=== PATIENT | female | born 1980 | race African-American/Black ===

== ENCOUNTER 2016-10-22 12:22 | Emergency (ER) | payer OTHER ==
[~2016-10-22] VITALS: Ht 170.2 cm; Wt 60.0 kg
[2016-10-22 13:21] VITALS: BP 118/82
--- NOTE | 2016-10-22 17:20 | NUR ---
36/F BIB SELF C/O TEST. PT STATES HAS HAD NAUSEA X 4 DAYS. PT STATES HAS NAUSEA NOTED AT THIS TIME ; DENIES VOMITING OR DIARRHEA AT THIS TIME. SKIN IS PINK/WARM/DRY; AAOX4 WITH EVEN AND STEADY GAIT; LUNGS CLEAR BL; HR EVEN AND REGULAR; PT DENIES ANY FEVER, CP, SOB, OR COUGH AT THIS TIME; PATIENT STATES PAIN OF 0/10 AT THIS TIME; VSS; PATIENT POSITIONED FOR COMFORT; HOB ELEVATED; BEDRAILS UP X2; BED DOWN. ER MD MADE AWARE OF PT STATUS.
[2016-10-22] MEDS ORDERED: ONDANSETRON 4 MG/2 ML VIAL IVP ONE (17:40)
[2016-10-22] MEDS ORDERED: NACL 0.9% 1,000 ML IV ONE (17:40)
--- NOTE | 2016-10-22 18:00 | NUR ---
PT TAKEN TO US VIA W/C ACCOMPANIED BY BARKEEP
[2016-10-22 18:24] LABS: BASOPHILS # (AUTO) 0.2 K/uL (0.00-0.22); BASOPHILS % (AUTO) 1.9 % (0.0-2.0); EOSINOPHILS # (AUTO) 0.1 K/uL (0-0.4); EOSINOPHILS % (AUTO) 0.7 % (0.0-4.0); HEMATOCRIT 37.5 % (36-48); HEMOGLOBIN 12.1 g/dL (12.0-16.0); LYMPHOCYTES # (AUTO) 2.4 K/uL (2.5-16.5); LYMPHOCYTES % (AUTO) 24.6 % (20.5-51.1); MEAN CORPUSCULAR HEMOGLOBIN 28 pg (27-31); MEAN CORPUSCULAR HGB CONC 32 g/dL (33-37); MEAN CORPUSCULAR VOLUME 88 fL (80-94); MONOCYTES # (AUTO) 0.6 K/uL (0.8-1.0); MONOCYTES % (AUTO) 6.6 % (1.7-9.3); NEUTROPHILS # (AUTO) 6.3 K/uL (1.8-7.7); NEUTROPHILS % (AUTO) 66.2 % (42.2-75.2); PLATELET COUNT (AUTO) 270 K/uL (140-450); RED BLOOD CELL COUNT(AUTO) 4.27 MIL/uL (4.20-5.40); RED CELL DISTRIBUTION WIDTH 13.5 % (11.6-13.7); WHITE BLOOD COUNT (AUTO) 9.6 K/uL (4.8-10.8)
[2016-10-22 18:35] LABS: ANION GAP 11.2 (8-16); CARBON DIOXIDE 27.6 mmol/L (21-32); CREATININE 0.6 mg/dL (0.6-1.3); POTASSIUM 3.8 mmol/L (3.5-5.1)
[2016-10-22 19:05] LABS: BILIRUBIN,URINE NEGATIVE (NEGATIVE); BLOOD, URINE NEGATIVE (NEGATIVE); COLOR,URINE YELLOW (YELLOW); LEUKOCYTE ESTERASE ,URINE 1+ (NEGATIVE); NITRITE, URINE NEGATIVE (NEGATIVE); PROTEIN,URINE NEGATIVE (NEGATIVE); UGLUCOSE NEGATIVE (NEGATIVE); UROBILINOGEN,URINE 0.2 EU/dL (0.2 - 1)
[2016-10-22 19:08] LABS: APPEARANCE,URINE CLOUDY (CLEAR)
--- NOTE | 2016-10-22 19:11 | NUR ---
Pt report given to MIRZA SAEED. Transfer of care at this time.
[2016-10-22 19:22] LABS: BACTERIA,URINE FEW /HPF (None Seen); RBC,URINE 0-5 (RARE) /HPF (0-5); SQUAMOUS EPITHELIAL CELL,UR FEW /LPF (0-3 (FEW)); WBC,URINE NONE SEEN /HPF (0-5)
[2016-10-22 19:23] LABS: CALCIUM OXALATE CRYSTALS,UR 0-10 /HPF (None Seen)
[2016-10-22 19:52] VITALS: BP 115/80
--- NOTE | 2016-10-22 19:54 | NUR ---
Patient discharged with v/s stable. Written and verbal after care instructions given and explained. Patient alert, oriented and verbalized understanding of instructions. Ambulatory with steady gait. All questions addressed prior to discharge. ID band removed. Patient advised to follow up with PMD. Rx of NITROFURANTOIN AND ZOFRAN given. Patient educated on indication of medication including possible reaction and side effects. Opportunity to ask questions provided and answered.
[2016-10-23] MEDS ORDERED: NITROFURANTOIN 100 MG CAP PO SCH (08:00)
[2016-10-24 06:16] LABS: CHLAMYDIA TRACHOMATIS AMP DNA Negative (Negative)
== END 2016-10-22 19:54 | disposition home or self-care (01) ==
LOC: MED 12:22
DX: O21.0 Mild hyperemesis gravidarum (principal); O23.41 Unspecified infection of urinary tract in pregnancy, first trimester; O26.891 Other specified pregnancy related conditions, first trimester; D64.9 Anemia, unspecified; Z3A.01 Less than 8 weeks gestation of pregnancy
CPT/HCPCS: 36415; 76817; 80048; 81001; 81025; 84702; 85025; 86900; 86901; 87086; 87205; 87210; 87491; 96361; 96374; 99285; J2405; J7030; Q0092

== ENCOUNTER 2016-10-27 23:49 | Emergency (ER) | payer OTHER ==
[~2016-10-27] VITALS: Ht 165.1 cm; Wt 49.9 kg
[2016-10-27 23:57] VITALS: BP 117/83
[2016-10-28] MEDS ORDERED: NACL 0.9% 1,000 ML IV ONE (00:10)
[2016-10-28] MEDS ORDERED: ONDANSETRON 4 MG/2 ML VIAL IVP ONE (00:10)
== END 2016-10-27 23:57 | disposition left against medical advice (07) ==
LOC: MED 23:49
DX: O26.891 Other specified pregnancy related conditions, first trimester (principal); R11.0 Nausea; Z3A.08 8 weeks gestation of pregnancy; Z53.21 Procedure and treatment not carried out due to patient leaving prior to being seen by health care provider

== ENCOUNTER 2016-11-26 15:01 | Emergency (ER) | payer OTHER ==
[~2016-11-26] VITALS: Ht 170.2 cm; Wt 66.7 kg
[2016-11-26 15:05] VITALS: BP 114/73
[2016-11-26] MEDS ORDERED: ONDANSETRON 4 MG ODT PO ONE (18:30)
[2016-11-26] MEDS ORDERED: NACL 0.9% 1,000 ML IV ONE (18:30)
--- NOTE | 2016-11-26 22:28 | NUR ---
Susan diaz in [facility] - 11/27/16 at 0223 by TATUM PATIENT LEFT WITHOUT BEING SEEN BY DR. DOLAN. NO FURTHER CARE PROVIDED FOR PATIENT.
--- NOTE | 2016-11-26 22:28 | NUR ---
PATIENT LEFT WITHOUT BEING SEEN BY DR. TEIXEIRA. NO FURTHER CARE PROVIDED FOR PATIENT.
== END 2016-11-26 22:12 | disposition left against medical advice (07) ==
LOC: MED 15:01
DX: O21.8 Other vomiting complicating pregnancy (principal); Z3A.12 12 weeks gestation of pregnancy; Z53.21 Procedure and treatment not carried out due to patient leaving prior to being seen by health care provider

== ENCOUNTER 2016-11-30 08:09 | Emergency (ER) | payer OTHER ==
[~2016-11-30] VITALS: Ht 175.3 cm; Wt 65.3 kg
[2016-11-30 08:11] VITALS: BP 116/83
--- NOTE | 2016-11-30 08:18 | NUR ---
PT AMBULATED TO BED 7
--- NOTE | 2016-11-30 08:19 | NUR ---
DR. DELAROSA AT BEDSIDE.
--- NOTE | 2016-11-30 08:19 | NUR ---
36/F BIB SELF C/O SEVERE NAUSEA AND VOMITING X 1 DAY-- >6 EPISODES OF 3 EMESIS SINCE LAST NIGHT. A1 12 WKS IUP. HX PANCREATITIS. DENIES RX. STS PANCREATITIS EXACERBATION WHEN .
[2016-11-30] MEDS ORDERED: NACL 0.9% 1,000 ML IV ONE (08:25)
[2016-11-30] MEDS ORDERED: ONDANSETRON 4 MG/2 ML VIAL IVP ONE (08:25)
--- NOTE | 2016-11-30 08:50 | NUR ---
LAB AT BEDSIDE
[2016-11-30 09:03] LABS: BASOPHILS # (AUTO) 0.1 K/uL (0.00-0.22); BASOPHILS % (AUTO) 0.9 % (0.0-2.0); EOSINOPHILS # (AUTO) 0.1 K/uL (0-0.4); EOSINOPHILS % (AUTO) 0.9 % (0.0-4.0); HEMATOCRIT 35.7 % (36-48); HEMOGLOBIN 11.5 g/dL (12.0-16.0); LYMPHOCYTES # (AUTO) 1.5 K/uL (2.5-16.5); LYMPHOCYTES % (AUTO) 17.2 % (20.5-51.1); MEAN CORPUSCULAR HEMOGLOBIN 28 pg (27-31); MEAN CORPUSCULAR HGB CONC 32 g/dL (33-37); MEAN CORPUSCULAR VOLUME 88 fL (80-94); MONOCYTES # (AUTO) 0.5 K/uL (0.8-1.0); NEUTROPHILS # (AUTO) 6.3 K/uL (1.8-7.7); PLATELET COUNT (AUTO) 237 K/uL (140-450); RED BLOOD CELL COUNT(AUTO) 4.05 MIL/uL (4.20-5.40); RED CELL DISTRIBUTION WIDTH 14.5 % (11.6-13.7); WHITE BLOOD COUNT (AUTO) 8.5 K/uL (4.8-10.8)
[2016-11-30 09:15] LABS: ANION GAP 10.7 (8-16); CALCIUM 8.1 mg/dL (8.5-10.1); CREATININE 0.5 mg/dL (0.6-1.3); POTASSIUM 3.7 mmol/L (3.5-5.1)
--- NOTE | 2016-11-30 09:16 | NUR ---
Patient appears to be resting comfortably in bed. Vital Signs within normal limits. Respirations even and unlabored. NO N/V NOTED AT THIS TIME.WILL CONTINUE TO MONITOR
[2016-11-30 09:19] LABS: ALBUMIN 2.7 g/dL (3.4-5.0); TOTAL BILIRUBIN 0.3 mg/dL (0.0-1.0); TOTAL PROTEIN, SERUM 6.2 g/dL (6.4-8.2)
[2016-11-30] MEDS ORDERED: METOCLOPRAMIDE 10 MG/2 ML INJ VIAL IVP ONE (09:45)
[2016-11-30 10:05] LABS: BILIRUBIN,URINE NEGATIVE (NEGATIVE); BLOOD, URINE NEGATIVE (NEGATIVE); COLOR,URINE YELLOW (YELLOW); LEUKOCYTE ESTERASE ,URINE 2+ (NEGATIVE); NITRITE, URINE NEGATIVE (NEGATIVE); PROTEIN,URINE NEGATIVE (NEGATIVE); UGLUCOSE NEGATIVE (NEGATIVE); UROBILINOGEN,URINE 0.2 EU/dL (0.2 - 1)
[2016-11-30 10:08] VITALS: BP 113/78
--- NOTE | 2016-11-30 10:08 | NUR ---
Patient discharged with v/s stable. Written and verbal after care instructions given and explained. Patient alert, oriented and verbalized understanding of instructions. Ambulatory with steady gait. All questions addressed prior to discharge. ID band removed. Patient advised to follow up with PMD. Rx of MACROBID& ZOFRAN ODT given. Patient educated on indication of medication including possible reaction and side effects. Opportunity to ask questions provided and answered.
[2016-11-30 10:10] LABS: APPEARANCE,URINE HAZY (CLEAR)
[2016-11-30 10:14] LABS: RBC,URINE 0-5 (RARE) /HPF (0-5)
[2016-11-30 10:15] LABS: BACTERIA,URINE 1+ /HPF (None Seen); MUCUS,URINE 1+ /LPF (None Seen); SQUAMOUS EPITHELIAL CELL,UR 4-10 (MOD) /LPF (0-3 (FEW))
== END 2016-11-30 10:08 | disposition home or self-care (01) ==
LOC: MED 08:09
DX: O23.41 Unspecified infection of urinary tract in pregnancy, first trimester (principal); O21.0 Mild hyperemesis gravidarum; Z3A.01 Less than 8 weeks gestation of pregnancy
CPT/HCPCS: 36415; 76801; 80053; 81001; 81025; 83690; 84702; 85025; 87086; 96361; 96374; 96375; 99285; J2405; J2765; J7030

== ENCOUNTER 2016-12-30 12:43 | Emergency (ER) | payer OTHER ==
[~2016-12-30] VITALS: Ht 170.2 cm; Wt 68.0 kg
[2016-12-30 12:47] VITALS: BP 116/83
--- NOTE | 2016-12-30 13:06 | NUR ---
SWETHA WAYNE RN [facility]---FHT [id number]
--- NOTE | 2016-12-30 13:37 | NUR ---
Patient to bed 08.
--- NOTE | 2016-12-30 13:40 | NUR ---
PATIENT PRESENTS TO ED WITH NAUSEA AND VOMITING ALSO DYSURIA . PT STATES . ; SKIN IS PINK/WARM/DRY; AAOX4 WITH EVEN AND STEADY GAIT; LUNGS CLEAR BL; HR EVEN AND REGULAR; PT DENIES ANY FEVER, CP, SOB, OR COUGH AT THIS TIME; PATIENT STATES PAIN OF 0/10 AT THIS TIME; VSS; PATIENT POSITIONED FOR COMFORT; HOB ELEVATED; BEDRAILS UP X2; BED DOWN. ER MD MADE AWARE OF PT STATUS.
[2016-12-30] MEDS ORDERED: NACL 0.9% 1,000 ML IV SCH (13:47)
[2016-12-30] MEDS ORDERED: ONDANSETRON 4 MG/2 ML VIAL IVP ONE (13:50)
[2016-12-30 14:08] VITALS: BP 112/65
--- NOTE | 2016-12-30 14:09 | NUR ---
DR.NELSON OAKLEYED FOR PT NOT TO HAVE IV ---DC HOME INSTRUCTIONS GIVEN TO PT AND
== END 2016-12-30 14:09 | disposition home or self-care (01) ==
LOC: MED 12:43
DX: O23.42 Unspecified infection of urinary tract in pregnancy, second trimester (principal); Z3A.17 17 weeks gestation of pregnancy; Z91.030 Bee allergy status; Z91.018 Allergy to other foods

== ENCOUNTER 2017-04-07 10:06 | Observation (INO) | payer MEDICAID, OTHER ==
[~2017-04-07] VITALS: Ht 170.2 cm; Wt 74.4 kg
[2017-04-07] MEDS ORDERED: PREN-546 PO (10:23)
[2017-04-07 10:46] VITALS: BP 101/60
== END 2017-04-07 11:20 | disposition home or self-care (01) ==
LOC: MLD 10:06
PROVIDERS: ADMIT Obstetrics & Gynecology; ATTEND Obstetrics & Gynecology
DX: O26.899 Other specified pregnancy related conditions, unspecified trimester (principal); R10.9 Unspecified abdominal pain; Z3A.00 Weeks of gestation of pregnancy not specified
CPT/HCPCS: 81000; G0378

== ENCOUNTER 2017-05-01 12:10 | Observation (INO) | payer MEDICAID ==
[~2017-05-01] VITALS: Ht 170.2 cm; Wt 74.8 kg
[~2017-05-01 12:10] MED LIST: PREN-546 PO
[2017-05-01 13:00] VITALS: BP 116/70
[2017-05-01] MEDS ORDERED: TERBUTALINE 1 MG/ML VIAL SUBQ ONE ×2 (13:01→15:42)
[2017-05-01] MEDS ORDERED: TERBUTALINE 1 MG/ML VIAL SUBQ SCH (13:20)
[2017-05-01 20:15] VITALS: BP 111/66
== END 2017-05-01 20:50 | disposition home or self-care (01) ==
LOC: MLD 12:10
PROVIDERS: ADMIT Obstetrics & Gynecology; ATTEND Obstetrics & Gynecology
DX: O62.9 Abnormality of forces of labor, unspecified (principal); O26.893 Other specified pregnancy related conditions, third trimester; R06.02 Shortness of breath; Z3A.36 36 weeks gestation of pregnancy
CPT/HCPCS: 59025; 81000; 96372; G0378; J3105

== ENCOUNTER 2017-05-15 12:38 | Inpatient (IN) | payer MEDICAID, OTHER ==
[~2017-05-15] VITALS: Ht 170.2 cm; Wt 77.6 kg
[2017-05-15] MEDS ORDERED: TERBUTALINE 1 MG/ML VIAL SUBQ ONE ×2 (13:56→14:44)
[2017-05-15] MEDS ORDERED: TERBUTALINE 1 MG/ML VIAL SUBQ SCH (14:05)
[2017-05-15 14:40] VITALS: BP 101/62
[2017-05-15] MEDS ORDERED: OXYTOCIN 10 UNITS/ML VIAL IM SCH (19:55)
[2017-05-15] MEDS ORDERED: CARBOPROST 250 MCG/ML AMP IM PRN (19:55)
[2017-05-15] MEDS ORDERED: METHYLERGONOVINE 0.2 MG/ML AMP IM PRN (19:55)
[2017-05-15] MEDS ORDERED: OXYTOCIN 20 UNITS in LACTATED RINGERS 1,000 ML IV SCH (20:10)
[2017-05-15] MEDS ORDERED: NALBUPHINE HYDROCHLORIDE 10 MG/ML VIAL IVP PRN (20:15)
[2017-05-15] MEDS ORDERED: PROMETHAZINE 25 MG/ML VIAL IVP PRN (20:15)
[2017-05-15 20:33] LABS: BASOPHILS % (AUTO) 0.3 % (0.0-2.0); HEMOGLOBIN 8.9 g/dL (12.0-16.0)
[2017-05-15 20:39] LABS: EOSINOPHILS % (AUTO) 0.4 % (0.0-4.0); HEMATOCRIT 28.4 % (36-48); LYMPHOCYTES # (AUTO) 1.8 K/uL (2.5-16.5); LYMPHOCYTES % (AUTO) 14.5 % (20.5-51.1); MEAN CORPUSCULAR HEMOGLOBIN 26 pg (27-31); MEAN CORPUSCULAR HGB CONC 32 g/dL (33-37); MEAN CORPUSCULAR VOLUME 84 fL (80-94); MONOCYTES # (AUTO) 0.9 K/uL (0.8-1.0); MONOCYTES % (AUTO) 7.5 % (1.7-9.3); NEUTROPHILS # (AUTO) 9.4 K/uL (1.8-7.7); NEUTROPHILS % (AUTO) 77.3 % (42.2-75.2); PLATELET COUNT (AUTO) 281 K/uL (140-450); RED BLOOD CELL COUNT(AUTO) 3.39 MIL/uL (4.20-5.40); RED CELL DISTRIBUTION WIDTH 14.4 % (11.6-13.7); WHITE BLOOD COUNT (AUTO) 12.1 K/uL (4.8-10.8)
[2017-05-15 20:50] LABS: ALBUMIN 2.6 g/dL (3.4-5.0); ANION GAP 11.1 (8-16); CARBON DIOXIDE 25.9 mmol/L (21-32); CREATININE 0.7 mg/dL (0.6-1.3); TOTAL BILIRUBIN 0.2 mg/dL (0.0-1.0)
[2017-05-15] MEDS: LACTATED RINGERS 1,000 ML IV SCH (20:53)
[2017-05-15 21:09] LABS: APPEARANCE,URINE HAZY (CLEAR); BILIRUBIN,URINE NEGATIVE (NEGATIVE); BLOOD, URINE NEGATIVE (NEGATIVE); COLOR,URINE YELLOW (YELLOW); LEUKOCYTE ESTERASE ,URINE 3+ (NEGATIVE); NITRITE, URINE NEGATIVE (NEGATIVE); PH,URINE 6.5 (5.0-9.0); UGLUCOSE NEGATIVE (NEGATIVE)
[2017-05-15 21:16] LABS: RBC,URINE 0-5 (RARE) /HPF (0-5); WBC,URINE 6-15 (FEW) /HPF (0-5)
[2017-05-15 21:18] LABS: BARBITURATE, URINE NEG. ng/ml (NEG <=200); BENZODIAZEPINE, URINE NEG. ng/mL (NEG <=200); CANNABINOID, URINE NEG. ng/mL (NEG <=50); COCAINE, URINE NEG. ng/mL (NEG <=300); OPIATE, URINE NEG. ng/mL (NEG <=2000); PHENCYCLIDINE SCREEN,URINE NEG. ng/mL (NEG <=25)
[2017-05-15] MEDS ORDERED: AMPICILLIN 2,000 MG in NACL 0.9% MINI-BAG PLUS 100 ML IV SCH (23:20)
[2017-05-15] MEDS ORDERED: AMPICILLIN 2,000 MG VIAL ONE (23:54)
[2017-05-16] MEDS ORDERED: AMPICILLIN 1,000 MG VIAL ONE ×2 (03:58→07:46)
[2017-05-16] MEDS ORDERED: AMPICILLIN 1,000 MG in NACL 0.9% MINI-BAG PLUS 50 ML IV SCH (04:00)
[2017-05-16] MEDS: LACTATED RINGERS 1,000 ML IV SCH (05:59)
--- NOTE | 2017-05-16 09:56 | NUR ---
PATIENT HAS BEEN SCREENED AND CATEGORIZED LOW NUTRITION RISK. PATIENT WILL BE SEEN WITHIN 7 DAYS OF ADMISSION. 05/22/[address]
== END 2017-05-16 20:20 | disposition home or self-care (01) | DRG 565 ==
LOC: MLD 12:38 → OBSVTOIN 20:11
PROVIDERS: ADMIT Obstetrics & Gynecology; ATTEND Obstetrics & Gynecology
DX: O47.1 False labor at or after 37 completed weeks of gestation (principal); Z3A.00 Weeks of gestation of pregnancy not specified
CPT/HCPCS: G0378 ×8; 36415; 80053; 80305; 81001; 85025; 86592; 86886; 86900; 86901; 87086; 96372; J0290; J3105; J7120

== ENCOUNTER 2017-05-22 05:20 | Inpatient (IN) | payer OTHER ==
[~2017-05-22] VITALS: Ht 170.2 cm; Wt 77.6 kg
[2017-05-22] MEDS ORDERED: OXYTOCIN 20 UNITS in LACTATED RINGERS 1,000 ML IV SCH (06:14)
[2017-05-22] MEDS ORDERED: METHYLERGONOVINE 0.2 MG/ML AMP IM PRN (06:15)
[2017-05-22] MEDS ORDERED: NALBUPHINE 10 MG/ML AMP IVP PRN (06:15)
[2017-05-22] MEDS ORDERED: PROMETHAZINE 25 MG/ML VIAL IVP PRN (06:15)
[2017-05-22] MEDS ORDERED: CARBOPROST 250 MCG/ML AMP IM PRN (06:15)
[2017-05-22] MEDS ORDERED: IBUPROFEN 800 MG TAB PO PRN (06:15)
[2017-05-22 07:10] LABS: BASOPHILS % (AUTO) 0.4 % (0.0-2.0); EOSINOPHILS # (AUTO) 0.2 K/uL (0-0.4); EOSINOPHILS % (AUTO) 1.4 % (0.0-4.0); HEMATOCRIT 28.1 % (36-48); HEMOGLOBIN 8.8 g/dL (12.0-16.0); LYMPHOCYTES # (AUTO) 2.1 K/uL (2.5-16.5); LYMPHOCYTES % (AUTO) 18.4 % (20.5-51.1); MEAN CORPUSCULAR HEMOGLOBIN 26 pg (27-31); MEAN CORPUSCULAR HGB CONC 31 g/dL (33-37); MEAN CORPUSCULAR VOLUME 83 fL (80-94); MONOCYTES # (AUTO) 1.1 K/uL (0.8-1.0); MONOCYTES % (AUTO) 9.2 % (1.7-9.3); NEUTROPHILS % (AUTO) 70.6 % (42.2-75.2); PLATELET COUNT (AUTO) 258 K/uL (140-450); RED BLOOD CELL COUNT(AUTO) 3.39 MIL/uL (4.20-5.40); RED CELL DISTRIBUTION WIDTH 14.2 % (11.6-13.7); WHITE BLOOD COUNT (AUTO) 11.4 K/uL (4.8-10.8)
[2017-05-22 07:27] LABS: BILIRUBIN,URINE NEGATIVE (NEGATIVE); BLOOD, URINE TRACE-I (NEGATIVE); COLOR,URINE YELLOW (YELLOW); LEUKOCYTE ESTERASE ,URINE 3+ (NEGATIVE); NITRITE, URINE NEGATIVE (NEGATIVE); UGLUCOSE NEGATIVE (NEGATIVE)
[2017-05-22 07:37] LABS: BARBITURATE, URINE NEG. ng/ml (NEG <=200); BENZODIAZEPINE, URINE NEG. ng/mL (NEG <=200); CANNABINOID, URINE NEG. ng/mL (NEG <=50); COCAINE, URINE NEG. ng/mL (NEG <=300); OPIATE, URINE NEG. ng/mL (NEG <=2000); PHENCYCLIDINE SCREEN,URINE NEG. ng/mL (NEG <=25)
[2017-05-22 07:39] LABS: APPEARANCE,URINE SLIGHTLY HAZY (CLEAR)
[2017-05-22 07:42] LABS: RBC,URINE 0-5 (RARE) /HPF (0-5); WBC,URINE 20-60 /HPF (0-5); YEAST,URINE Few /HPF (None Seen)
[2017-05-22 07:46] VITALS: BP 94/60
[2017-05-22] MEDS: LACTATED RINGERS 1,000 ML IV SCH ×4 (08:17→21:32)
[2017-05-22] MEDS ORDERED: MISOPROSTOL 25 MCG TAB VG SCH (08:20)
[2017-05-22 08:37] LABS: ANION GAP 13.2 (8-16); CARBON DIOXIDE 25.7 mmol/L (21-32); CREATININE 0.6 mg/dL (0.6-1.3); POTASSIUM 3.9 mmol/L (3.5-5.1)
[2017-05-22 08:44] LABS: ALBUMIN 2.7 g/dL (3.4-5.0); TOTAL BILIRUBIN 0.2 mg/dL (0.0-1.0)
[2017-05-22] MEDS ORDERED: MISOPROSTOL 25 MCG TAB ONE ×2 (09:16→13:17)
[2017-05-22] MEDS ORDERED: OXYTOCIN 10 UNITS/ML VIAL IM SCH (13:00)
[2017-05-22] MEDS ORDERED: OXYTOCIN 20 UNITS/LR PREMIX 1,000 ML IV ONE (13:27)
[2017-05-22] MEDS ORDERED: ROPIVACAINE 0.2%/NS PREMIX 250 ML EPI ONE (17:36)
[2017-05-22] MEDS ORDERED: ROPIVACAINE 0.2%/NS PREMIX 250 ML EPI SCH (17:45)
[2017-05-22] MEDS ORDERED: AMPICILLIN 2,000 MG in NACL 0.9% MINI-BAG PLUS 100 ML IV SCH (21:45)
[2017-05-22] MEDS ORDERED: AMPICILLIN 0 MG in SYRINGE 1 EA IVP SCH (21:45)
[2017-05-22] MEDS ORDERED: AMPICILLIN IVP SCH ×2 (21:45)
[2017-05-22] MEDS ORDERED: AMPICILLIN 2,000 MG VIAL ONE (21:52)
[2017-05-23] MEDS ORDERED: AMPICILLIN 1,000 MG in NACL 0.9% 50 ML IV SCH (00:45)
[2017-05-23] MEDS ORDERED: AMPICILLIN 1,000 MG VIAL ONE (01:28)
[2017-05-23] MEDS ORDERED: NALBUPHINE HYDROCHLORIDE 10 MG/ML VIAL ONE (02:59)
[2017-05-23] MEDS ORDERED: PROMETHAZINE 25 MG/ML VIAL ONE (02:59)
[2017-05-23] MEDS ORDERED: OXYTOCIN 10 UNITS/ML VIAL ONE (03:45)
[2017-05-23] MEDS ORDERED: MEASLES, MUMPS, AND RUBELLA 1 VIAL SQVAC PRN (04:40)
[2017-05-23] MEDS ORDERED: oxyCODONE/APAP 5/325 MG 1 TAB TAB PO PRN (04:40)
[2017-05-23] MEDS ORDERED: TEMAZEPAM 15 MG CAP PO PRN (04:40)
[2017-05-23] MEDS ORDERED: HYDROcodone/APAP 5/325 MG 1 TAB TAB PO PRN (04:40)
[2017-05-23] MEDS ORDERED: SODIUM PHOSPHATE 118 ML ENEM RC PRN (04:40)
[2017-05-23] MEDS ORDERED: METHYLERGONOVINE 0.2 MG/ML AMP IM PRN (04:40)
[2017-05-23] MEDS ORDERED: BENZOCAINE/MENTHOL 20%-0.5% 60 GM CAN TP PRN (04:40)
[2017-05-23] MEDS ORDERED: METHYLERGONOVINE 0.2 MG TAB PO PRN (04:40)
[2017-05-23] MEDS ORDERED: OXYTOCIN 10 UNITS/ML VIAL IM PRN (04:40)
--- NOTE | 2017-05-23 07:55 | NUR ---
PATIENT HAS BEEN SCREENED AND CATEGORIZED LOW NUTRITION RISK. PATIENT WILL BE SEEN WITHIN 7 DAYS OF ADMISSION. 05/28/[address]
[2017-05-23] MEDS ORDERED: DOCUSATE SOD/SENNA 50/8.6 MG 1 TAB PO SCH (21:00)
[2017-05-23] MEDS ORDERED: LACTATED RINGERS 1,000 ML IV SCH (21:30)
[2017-05-24 06:08] LABS: HEMATOCRIT 24.1 % (36-48); HEMOGLOBIN 7.7 g/dL (12.0-16.0)
[2017-05-24] MEDS ORDERED: SEVOFLURANE 250 ML BTL INH ONE (07:15)
[2017-05-24] MEDS ORDERED: ONDANSETRON 4 MG/2 ML VIAL ONE (07:15)
[2017-05-24] MEDS ORDERED: MEPERIDINE 50 MG/ML SYR ONE ×2 (07:15→07:30)
[2017-05-24] MEDS ORDERED: PROPOFOL 200 MG/20 ML VIAL IV ONE (07:15)
[2017-05-24] MEDS ORDERED: DEXAMETHASONE 4 MG/ML VIAL ONE (07:15)
[2017-05-24] MEDS ORDERED: SUCCINYLCHOLINE CHLORIDE 200 MG/10 ML VIAL IVP ONE (07:15)
[2017-05-24] MEDS ORDERED: MORPHINE SULFATE 4 MG/ML SYR IM/IVP PRN (07:20)
[2017-05-24] MEDS ORDERED: ACETAMINOPHEN/CODEINE 300/30MG 1 TAB PO PRN (07:20)
[2017-05-24] MEDS ORDERED: ONDANSETRON 4 MG/2 ML VIAL IVP PRN ×2 (07:20→07:50)
[2017-05-24] MEDS ORDERED: IBUPROFEN 800 MG TAB PO PRN (07:20)
[2017-05-24] MEDS ORDERED: BUPIVACAINE-MPF 0.5% 30 ML VIAL INJ ONE (07:27)
[2017-05-24] MEDS ORDERED: fentaNYL 0.05 MG/ML VIAL ONE (07:30)
[2017-05-24] MEDS ORDERED: MIDAZOLAM 2 MG/2 ML VIAL ONE (07:30)
[2017-05-24] MEDS ORDERED: LACTATED RINGERS 1,000 ML IV SCH (07:46)
[2017-05-24] MEDS ORDERED: diphenhydrAMINE 50 MG/ML VIAL IVP PRN (07:50)
[2017-05-24] MEDS ORDERED: MEPERIDINE 25 MG/ML SYR IVP PRN (07:50)
[2017-05-24] MEDS ORDERED: HYDROmorphone 1 MG/ML AMP IVP PRN (07:50)
[2017-05-24] MEDS ORDERED: oxyCODONE/APAP 5/325 MG 1 TAB TAB PO PRN (17:00)
[2017-05-24] MEDS: HYDROcodone/APAP 5/325 MG 1 TAB TAB PO PRN ×2 (17:31→23:10)
[2017-05-24] MEDS ORDERED: DOCUSATE SOD/SENNA 50/8.6 MG 1 TAB PO SCH (21:00)
[2017-05-25] MEDS ORDERED: IBUP-2217 PO (09:57)
[2017-05-25] MEDS: HYDROcodone/APAP 5/325 MG 1 TAB TAB PO PRN (10:43)
== END 2017-05-25 14:00 | disposition home or self-care (01) | DRG 541 ==
LOC: MLD 05:20 → MFCC 05-23 09:55
PROVIDERS: ADMIT Obstetrics & Gynecology; ATTEND Obstetrics & Gynecology
PROC: 10E0XZZ Delivery of Products of Conception, External Approach (ICD-10-PCS; 2017-05-23)
PROC: 3E0S3BZ Introduction of Anesthetic Agent into Epidural Space, Percutaneous Approach (ICD-10-PCS; 2017-05-23)
PROC: 00HU33Z Insertion of Infusion Device into Spinal Canal, Percutaneous Approach (ICD-10-PCS; 2017-05-23)
PROC: 3E0234Z Introduction of Serum, Toxoid and Vaccine into Muscle, Percutaneous Approach (ICD-10-PCS; 2017-05-23)
PROC: 0UB70ZZ Excision of Bilateral Fallopian Tubes, Open Approach (ICD-10-PCS; principal; 2017-05-24 07:30)
DX: O69.81X0 Labor and delivery complicated by cord around neck, without compression, not applicable or unspecified (principal); Z23 Encounter for immunization; Z87.891 Personal history of nicotine dependence; Z30.2 Encounter for sterilization; Z3A.41 41 weeks gestation of pregnancy; Z37.0 Single live birth
CPT/HCPCS: 36415; 51702; 59200; 59409; 80053; 80305; 81001; 85018; 85025; 86592; 86886; 86900; 86901; 87086; 90715; J0290; J0330; J1100; J2175; J2250; J2300; J2405; J2550; J2590; J2704; J2795; J3010; J3490; J7120